=== PATIENT | female | born 1955 | race Caucasian/White ===

== ENCOUNTER 2022-05-20 07:18 | Day surgery (SDC) | payer OTHER ==
[~2022-05-20] VITALS: Ht 170.2 cm; Wt 68.1 kg
[~2022-05-20 07:18] MED LIST: RINGERS SOLUTION,LACTATED 500 ML IV ONE
[2022-05-20] MEDS ORDERED: MethylPREDNISolone SOD SUCC 40 MG/ML VIAL ONE ×2 (07:22→09:39)
[2022-05-20] MEDS ORDERED: EPINEPHrine 1:1,000 [1 MG/ML] VIAL ONE ×3 (07:25→09:37)
[2022-05-20] MEDS ORDERED: POVIDONE-IODINE 5% 30 ML OPHTHALMIC SOLUTION ONE (07:26)
[2022-05-20] MEDS ORDERED: NEOMYCIN/POLYMYXIN B/DEXAMETH 3.5 GM OPHTHALMIC OINTMENT ONE (07:26)
[2022-05-20] MEDS ORDERED: ACETYLCHOLINE CHLORIDE 1 EA INTRAOCULAR SOLUTION KIT IO ONE (07:26)
[2022-05-20] MEDS ORDERED: TETRACAINE HCL/PF 0.5% 4 ML OPHTHALMIC SOLUTION ONE (07:26)
[2022-05-20] MEDS ORDERED: LIDOCAINE/PF 1% 2 ML VIAL ONE ×2 (07:36→09:38)
[2022-05-20] MEDS ORDERED: SODIUM CHLORIDE 0.9% 10 ML ONE ×2 (08:34→09:38)
[2022-05-20 08:35] LABS: COVID AG,FIA SOURCE NASAL SWAB
[2022-05-20] MEDS ORDERED: MethylPREDNISolone SOD SUCC 40 MG/ML VIAL IM ONE (08:42)
[2022-05-20] MEDS ORDERED: KETOROLAC TROMETHAMINE 0.5% 5 ML OPHTHALMIC SOLUTION ONE (08:47)
[2022-05-20] MEDS ORDERED: CYCLOPENTOLATE HCL 1% 2 ML OPHTHALMIC SOLUTION ONE (08:48)
[2022-05-20] MEDS ORDERED: PHENYLEPHRINE HCL 2.5% 2 ML OPHTHALMIC SOLUTION ONE (08:48)
[2022-05-20] MEDS ORDERED: TROPICAMIDE 1% 2 ML OPHTHALMIC SOLUTION ONE (08:48)
[2022-05-20] MEDS: PHENYLEPHRINE HCL 2.5% 2 ML OPHTHALMIC SOLUTION OD SCH ×3 (08:52→09:06)
[2022-05-20] MEDS: TROPICAMIDE 1% 2 ML OPHTHALMIC SOLUTION OD SCH ×3 (08:53→09:07)
[2022-05-20] MEDS: CYCLOPENTOLATE HCL 1% 2 ML OPHTHALMIC SOLUTION OD SCH ×3 (08:53→09:06)
[2022-05-20] MEDS: KETOROLAC TROMETHAMINE 0.5% 5 ML OPHTHALMIC SOLUTION OD SCH ×3 (08:53→09:07)
[2022-05-20] MEDS ORDERED: MethylPREDNISolone SOD SUCC 40 MG/ML VIAL IVP ONE (09:48)
[2022-05-20] MEDS ORDERED: RINGERS SOLUTION,LACTATED 500 ML IV ONE (10:41)
[2022-05-20] MEDS ORDERED: FentaNYL CITRATE PF 100 MCG/2 ML VIAL IVP PRN (10:45)
[2022-05-20] MEDS ORDERED: ONDANSETRON HCL 4 MG/2 ML VIAL IVP ONE (12:00)
[2022-05-20] MEDS ORDERED: LIDOCAINE/PF 2% 5 ML VIAL IM ONE (12:00)
[2022-05-20] MEDS ORDERED: HYALURONATE SOD/CHONDROITIN SOD 0.5 ML VIAL IO ONE (12:00)
[2022-05-20] MEDS ORDERED: 0.9% SODIUM CHLORIDE 10 ML VIAL IVP ONE (12:00)
[2022-05-20] MEDS ORDERED: PROPOFOL 1% 20 ML VIAL IVP ONE (12:00)
[2022-05-20] MEDS ORDERED: HYALURONATE SOD 8.5MG/0.85ML 10 MG/ML SYRINGE IO ONE (12:00)
[2022-05-20] MEDS ORDERED: MIDAZOLAM HCL 2 MG/2 ML VIAL IVP ONE (12:00)
[2022-05-20] MEDS ORDERED: BALANCED SALT 15 ML OPHTHALMIC IRRIG.SOLN OD ONE (12:00)
[2022-05-20] MEDS ORDERED: TETRACAINE HCL/PF 0.5% 4 ML OPHTHALMIC SOLUTION OD ONE (12:00)
[2022-05-20] MEDS ORDERED: EPHEDrine SULFATE 50 MG/ML VIAL IVP ONE (12:00)
[2022-05-20] MEDS ORDERED: OXYGEN THERAPY IH SCH (20:00)
== END 2022-05-20 14:36 | disposition home or self-care (01) ==
LOC: SURGERY 07:18
PROVIDERS: ATTEND Ophthalmology
DX: H25.89 Other age-related cataract (principal); Z79.899 Other long term (current) drug therapy; Z20.822 Contact with and (suspected) exposure to COVID-19
CPT/HCPCS: 66982; 87426; 93005; J2704; J0690; J3490 ×3; J0171; J2250; J2920; J2405; Q9967; J7120; V2632; C9803